=== PATIENT | male | born 1960 | race Caucasian/White ===

== ENCOUNTER 2017-01-31 12:20 | Emergency (ER) | payer BC ==
[~2017-01-31] VITALS: Ht 175.3 cm; Wt 94.8 kg
[2017-01-31] MEDS ORDERED: DIPH,PERTUSS(ACELL),TET VAC/PF 0.5 ML IM-VACC ONE ×2 (13:30→14:01)
[2017-01-31] MEDS ORDERED: SODIUM CHLORIDE FLUSH 10ML SYR IVF ONE (13:30)
[2017-01-31] MEDS ORDERED: CEFAZOLIN 1,000 MG in SODIUM CHLORIDE 0.9% 50 ML IV ONE (13:30)
[2017-01-31] MEDS ORDERED: SODIUM CHLORIDE 0.9% 1,000ML IVBOLUS ONE (13:30)
[2017-01-31] MEDS ORDERED: MORPHINE SULFATE 4 MG/ML, 1ML IVPush ONE (13:30)
[2017-01-31 13:51] LABS: BLOOD UREA NITROGEN 18 mg/dL (7-18)
[2017-01-31] MEDS ORDERED: CEFAZOLIN PMX 1GM/50ML 50 ML ONE (14:01)
[2017-01-31] MEDS ORDERED: KETOROLAC 30 MG/1 ML IVPush ONE (15:00)
[2017-01-31] MEDS ORDERED: LIDOCAINE 1%, 20ML SQ ONE (15:30)
[2017-01-31] MEDS ORDERED: KETOROLAC 30 MG/1 ML ONE (16:09)
[2017-01-31] MEDS ORDERED: LIDOCAINE 1%, 20ML ONE (16:09)
[2017-01-31 17:30] VITALS: BP 126/75
[2017-02-01] MEDS ORDERED: ESCI10TA PO (15:08)
[2017-02-01] MEDS ORDERED: ATOR80TA75 PO (15:08)
[2017-02-01] MEDS ORDERED: ASPI-496 PO (15:08)
[2017-02-01] MEDS ORDERED: HYDR25TA6 PO (15:08)
[2017-02-01] MEDS ORDERED: ATEN25TA PO (15:08)
== END 2017-01-31 18:59 | disposition home or self-care (01) ==
LOC: ED 17:29
DX: S61.210A Laceration without foreign body of right index finger without damage to nail, initial encounter (principal); S61.411A Laceration without foreign body of right hand, initial encounter; I10 Essential (primary) hypertension; W31.89XA Contact with other specified machinery, initial encounter; Y93.89 Activity, other specified; Y92.098 Other place in other non-institutional residence as the place of occurrence of the external cause; Y99.8 Other external cause status
CPT/HCPCS: 12002; 36415; 73130; 80048; 82040; 85025; 90471; 90715; 96365; 96375; 99285; J0690; J1885; J3490; J7030

== ENCOUNTER 2017-02-01 14:30 | Day surgery (SDC) | payer BC ==
[~2017-02-01] VITALS: Ht 175.3 cm; Wt 94.5 kg
[2017-02-01] MEDS ORDERED: LACTATED RINGERS 1,000 ML IV SCH (15:05)
[2017-02-01] MEDS ORDERED: ATEN25TA PO (15:08)
[2017-02-01] MEDS ORDERED: ATOR80TA75 PO (15:08)
[2017-02-01] MEDS ORDERED: HYDR25TA6 PO (15:08)
[2017-02-01] MEDS ORDERED: ESCI10TA PO (15:08)
[2017-02-01] MEDS ORDERED: ASPI-496 PO (15:08)
[2017-02-01 15:15] VITALS: BP 144/90
[2017-02-01] MEDS ORDERED: BUPIVACAINE/PF-EPI 0.5% 1:200K ONE (15:16)
[2017-02-01] MEDS ORDERED: MIDAZOLAM 1 MG/ML, 2ML ONE (16:29)
[2017-02-01] MEDS ORDERED: FENTANYL PF 250 MCG/5ML ONE (16:29)
[2017-02-01] MEDS ORDERED: METOCLOPRAMIDE 5 MG/ML, 2ML ONE (16:36)
[2017-02-01] MEDS ORDERED: ONDANSETRON 2MG/ML, 2ML ONE (16:36)
[2017-02-01] MEDS ORDERED: DEXAMETHASONE 4 MG/ML, 1ML ONE (16:36)
[2017-02-01] MEDS ORDERED: PROPOFOL 10 MG/ML, 20ML ONE (16:36)
[2017-02-01] MEDS ORDERED: CEFAZOLIN 1,000 MG ONE (16:36)
[2017-02-01] MEDS ORDERED: BUPIVACAINE/PF 0.5% ONE (16:44)
[2017-02-01] MEDS ORDERED: BACITRACIN OINT 500U/GM, 15 GM ONE (16:56)
[2017-02-01] MEDS ORDERED: BACITRACIN 50,000 UNIT ONE (16:56)
[2017-02-01] MEDS ORDERED: hydrALAzine 20 MG/ML, 1ML IV PRN (17:00)
[2017-02-01] MEDS ORDERED: METOPROLOL 1 MG/ML, 5ML IV PRN (17:00)
[2017-02-01] MEDS ORDERED: ALBUTEROL SULFATE 2.5 MG/3 ML NPPB PRN (17:00)
[2017-02-01] MEDS ORDERED: EPHEDRINE 50 MG/ML, 1ML IVPush PRN (17:00)
[2017-02-01] MEDS ORDERED: MEPERIDINE/PF 25MG/0.5ML IVPush PRN (17:00)
[2017-02-01] MEDS ORDERED: LABETALOL 5MG/ML, 20ML IV PRN (17:00)
[2017-02-01] MEDS ORDERED: HYDROmorphone 1 MG/ML, 1ML IV PRN (17:00)
[2017-02-01] MEDS ORDERED: FENTANYL PF 100 MCG/2ML IV PRN (17:00)
[2017-02-01] MEDS ORDERED: OXYcodone 5 MG/5 ML ORAL.SOL UDC PO PRN (17:00)
[2017-02-01] MEDS ORDERED: ONDANSETRON 2MG/ML, 2ML IVPush PRN (17:00)
[2017-02-01] MEDS ORDERED: ACETAMINOPHEN 325 MG TABLET PO PRN (17:00)
[2017-02-01] MEDS ORDERED: OXYcodone 5 MG/5 ML ORAL.SOL UDC ONE (18:07)
[2017-02-01] MEDS ORDERED: ACETAMINOPHEN 650 MG/20.3 ML UDC ONE (18:07)
[2017-02-01] MEDS ORDERED: LABETALOL 5MG/ML, 20ML ONE (18:45)
== END 2017-02-01 20:00 | disposition home or self-care (01) ==
LOC: OR 14:30
PROVIDERS: ATTEND Orthopaedic Surgery
DX: S66.320A Laceration of extensor muscle, fascia and tendon of right index finger at wrist and hand level, initial encounter (principal); S62.330A Displaced fracture of neck of second metacarpal bone, right hand, initial encounter for closed fracture; X58.XXXA Exposure to other specified factors, initial encounter; Y93.9 Activity, unspecified; Y92.9 Unspecified place or not applicable; Y99.9 Unspecified external cause status; I10 Essential (primary) hypertension; F17.200 Nicotine dependence, unspecified, uncomplicated
CPT/HCPCS: 26418; 26615; 73140; 76000; J0690; J1100; J2250; J2405; J2704; J2765; J3010; J3490; J7120

== ENCOUNTER 2017-04-07 11:56 | Emergency (ER) | payer BC ==
[~2017-04-07] VITALS: Ht 152.4 cm; Wt 94.0 kg
[~2017-04-07 11:56] MED LIST: ASPI-496 PO; ATEN25TA PO; ATOR-2 PO; ESCI10TA PO; HYDR25TA6 PO
[2017-04-07] MEDS ORDERED: MORPHINE SULFATE 4 MG/ML, 1ML IVPush PRN (12:30)
[2017-04-07] MEDS ORDERED: ONDANSETRON 2MG/ML, 2ML IVPush ONE (12:30)
[2017-04-07] MEDS ORDERED: SODIUM CHLORIDE FLUSH 10ML SYR IVF ONE (12:30)
[2017-04-07] MEDS ORDERED: SODIUM CHLORIDE 0.9% 1,000ML IVBOLUS ONE (12:30)
[2017-04-07 12:59] LABS: HEMOGLOBIN 16.6 g/dL (13.7-18.0); WHITE BLOOD COUNT 10.1 x10^3/uL (3.4-10)
[2017-04-07 13:12] LABS: BLOOD UREA NITROGEN 12 mg/dL (7-18)
[2017-04-07 13:16] LABS: ASPARTATE AMINO TRANSFERASE 19 U/L (15-37)
[2017-04-07] MEDS ORDERED: OMNIPAQUE 350 MG/ML, 100ML BOTTLE ONE (15:16)
[2017-04-07 17:10] VITALS: BP 134/92
== END 2017-04-07 17:12 | disposition home or self-care (01) ==
LOC: ED 14:23
DX: K63.89 Other specified diseases of intestine (principal); I10 Essential (primary) hypertension
CPT/HCPCS: 36415; 74177; 80053; 83690; 85025; 99285; Q9967